=== PATIENT | female | born 1990 | race Caucasian/White ===

== ENCOUNTER → 2016-10-13 | Outpatient (CLI) | payer BC | LOC: LAB.O 12:38 | PROVIDERS: ATTEND Specialist | DX: L65.9 Nonscarring hair loss, unspecified (principal); L70.9 Acne, unspecified; R94.6 Abnormal results of thyroid function studies; R53.83 Other fatigue; R25.2 Cramp and spasm; N92.6 Irregular menstruation, unspecified ==

== ENCOUNTER → 2019-05-16 | Outpatient (CLI) | payer BC | LOC: GMAE 10:46 | PROVIDERS: ATTEND Family Medicine | DX: Z00.00 Encounter for general adult medical examination without abnormal findings (principal) ==